=== PATIENT | female | born 1975 | race Two or more races ===

== ENCOUNTER 2023-06-21 10:39 | Inpatient (IN) | payer OTHER ==
[~2023-06-21] VITALS: Ht 160 cm; Wt 54.4 kg
[2023-06-21] MEDS ORDERED: ATORVASTATIN CA10 MG PO (12:03)
[2023-06-21] MEDS ORDERED: SERTRALINE HCL100 MG PO (12:03)
[2023-06-29 00:10] LABS: HEMATOCRIT 37.8 % (36.0-45.00); HEMOGLOBIN 12.5 g/dL (12.0-15.00); MEAN CELL VOLUME 89.3 fL (80.00-100.00); MEAN CORPUSCULAR HEMOGLOBIN 29.4 pg (27.00-32.0); MEAN CORPUSCULAR HGB CONC 32.9 g/dl (32.0-36.0); PLATELET COUNT 243 K/uL (150-450); RED BLOOD COUNT 4.24 M/uL (4.00-6.00); RED CELL DISTRIBUTION WIDTH 14.3 % (11.5-14.5)
[2023-06-29 00:19] LABS: CALCIUM 8.5 mg/dL (8.5-10.1); CREATININE SERUM 0.6 mg/dL (0.55-1.02); GFR 107.16; POTASSIUM 4.11 mEq/L (3.5-5.1)
[2023-06-29 04:37] LABS: HEMATOCRIT 35.8 % (36.0-45.00); MEAN CELL VOLUME 89.5 fL (80.00-100.00); MEAN CORPUSCULAR HEMOGLOBIN 29.9 pg (27.00-32.0); MEAN CORPUSCULAR HGB CONC 33.4 g/dl (32.0-36.0); PLATELET COUNT 264 K/uL (150-450); RED CELL DISTRIBUTION WIDTH 14.6 % (11.5-14.5)
[2023-06-29 04:54] LABS: CALCIUM 8.8 mg/dL (8.5-10.1); CREATININE SERUM 2.1 mg/dL (0.55-1.02); GFR 25.24; POTASSIUM 4.45 mEq/L (3.5-5.1)
[2023-06-29 09:20] LABS: CALCIUM 9.1 mg/dL (8.5-10.1); CREATININE SERUM 0.82 mg/dL (0.55-1.02); GFR 74.72; POTASSIUM 3.83 mEq/L (3.5-5.1)
== END 2023-06-29 14:31 | disposition home or self-care (01) | DRG 743 ==
LOC: OB/GYN 06-28 10:45 → O/R 06-28 15:44 → OB/GYN 06-28 18:30
PROVIDERS: Obstetrics & Gynecology; ADMIT Obstetrics & Gynecology Gynecologic Oncology; ATTEND Obstetrics & Gynecology Gynecologic Oncology
PROC: 0UT74ZZ Resection of Bilateral Fallopian Tubes, Percutaneous Endoscopic Approach (ICD-10-PCS; 2023-06-28)
PROC: 0USG4ZZ Reposition Vagina, Percutaneous Endoscopic Approach (ICD-10-PCS; 2023-06-28)
PROC: 0UT94ZZ Resection of Uterus, Percutaneous Endoscopic Approach (ICD-10-PCS; principal; 2023-06-28 18:30)
DX: N72 Inflammatory disease of cervix uteri (principal); Z20.822 Contact with and (suspected) exposure to COVID-19